=== PATIENT | male | born 1950 | race African-American/Black ===

== ENCOUNTER 2016-08-10 14:01 | Emergency (ER) | payer MEDICARE, OTHER ==
[2016-12-17] MEDS ORDERED: ZOCOR 10 MG TAB10 MG PO (18:26)
[2016-12-17] MEDS ORDERED: ASPIRIN81 MG PO (18:30)
[2016-12-17] MEDS ORDERED: HYDROCHLOROTHIA25 MG PO (18:30)
[2016-12-17] MEDS ORDERED: THERAGRAN TAB1 EA PO (18:31)
[2016-12-17] MEDS ORDERED: POTASSIUM (18:36)
[2016-12-19] MEDS ORDERED: NITROSTAT0.4 MG SL (17:09)
[2016-12-19] MEDS ORDERED: NORVASC 5 MG TAB5 MG PO (17:09)
== END 2016-08-10 17:10 | disposition home or self-care (01) ==
LOC: ER1 14:01
DX: S60.211A Contusion of right wrist, initial encounter (principal); I10 Essential (primary) hypertension; Z88.6 Allergy status to analgesic agent; W22.09XA Striking against other stationary object, initial encounter; Y92.22 Religious institution as the place of occurrence of the external cause; Z79.82 Long term (current) use of aspirin; Z79.899 Other long term (current) drug therapy
CPT/HCPCS: 29125; 73110; 73130; 99283

== ENCOUNTER → 2016-09-30 | Outpatient (CLI) | payer MEDICARE, OTHER ==
[~2016-09-30] MED LIST: ASPIRIN81 MG PO; HYDROCHLOROTHIA25 MG PO; NITROSTAT0.4 MG SL; NORVASC 5 MG TAB5 MG PO; POTASSIUM; THERAGRAN TAB1 EA PO; ZOCOR 10 MG TAB10 MG PO
== END ==
LOC: KOH-I 13:02
DX: M25.511 Pain in right shoulder (principal); M25.531 Pain in right wrist; M25.571 Pain in right ankle and joints of right foot; M25.572 Pain in left ankle and joints of left foot; M19.031 Primary osteoarthritis, right wrist; R79.89 Other specified abnormal findings of blood chemistry
CPT/HCPCS: 73030; 73110; 73630

== ENCOUNTER 2021-09-27 11:47 | Inpatient (IN) | payer MEDICARE, OTHER ==
[~2021-09-27] VITALS: Ht 175.3 cm; Wt 84.8 kg
[~2021-09-27 11:47] MED LIST changes: +AMLODIPINE BESYL5 MG PO; +ATORVASTATIN CA20 MG PO; +HARVONI 90-4001 EACH PO; +HYDRALAZINE HCL25 MG PO; +IMDUR ER TAB 3030 MG PO; +LIPITOR TAB 2020 MG PO; +LISINOPRIL10 MG PO; +LOPRESSOR 25 MG25 MG PO; +MELOXICAM15 MG PO; +PLAVIX 75 MG TA75 MG PO; +PRADAXA 150 MG150 MG PO
[2021-09-27 12:46] LABS: HEMOGLOBIN 13.8 gm/dl (14.0-17.5); RED BLOOD COUNT 4.52 M/UL (4.20-5.50); WHITE BLOOD COUNT 6.4 K/UL (4.5-11.0)
[2021-09-27 12:58] LABS: BUN/CREATININE RATIO 14 (0-10)
[2021-09-27] MEDS ORDERED: ELIQUIS5 MG PO (15:42)
[2021-09-27] MEDS ORDERED: AMLODIPINE BESY10 MG PO (15:43)
[2021-09-27] MEDS ORDERED: PROVENTIL HFA6.7 GM INH (17:30)
[2021-09-27] MEDS ORDERED: IPRAT-ALBUT 0.5-3 ML INH (17:31)
[2021-09-27] MEDS ORDERED: GABAPENTIN600 MG PO (17:32)
[2021-09-28 03:03] LABS: HEMOGLOBIN 11.3 gm/dl (14.0-17.5); RED BLOOD COUNT 3.73 M/UL (4.20-5.50); WHITE BLOOD COUNT 3.6 K/UL (4.5-11.0)
[2021-09-28 03:49] LABS: BUN/CREATININE RATIO 16 (0-10)
[2021-09-29 01:50] LABS: BUN/CREATININE RATIO 15 (0-10)
[2021-09-30 02:09] LABS: BUN/CREATININE RATIO 13 (0-10)
[2021-10-01 02:38] LABS: HEMOGLOBIN 10.9 gm/dl (14.0-17.5); RED BLOOD COUNT 3.57 M/UL (4.20-5.50); WHITE BLOOD COUNT 4.3 K/UL (4.5-11.0)
[2021-10-01 03:06] LABS: BUN/CREATININE RATIO 14 (0-10)
[2021-10-01] MEDS ORDERED: SYMBICORT 160-1 INHA INH (09:04)
[2021-10-01] MEDS ORDERED: FUROSEMIDE40 MG PO (09:04)
[2021-10-01] MEDS ORDERED: COZAAR 50MG TAB50 MG PO (09:04)
[2021-10-01] MEDS ORDERED: WARFARIN SODIUM5 MG PO (09:04)
== END 2021-10-01 10:05 | disposition home or self-care (01) | DRG 175 ==
LOC: ER1 11:47 → PROG CARE 15:30 → CDU 15:30 → PROG CARE 17:13
PROVIDERS: Nurse Practitioner; ADMIT Internal Medicine Infectious Disease
PROC: 5A09357 Assistance with Respiratory Ventilation, Less than 24 Consecutive Hours, Continuous Positive Airway Pressure (ICD-10-PCS; 2021-09-27)
PROC: B24BZZZ Ultrasonography of Heart with Aorta (ICD-10-PCS; principal; 2021-09-28)
PROC: 5A09357 Assistance with Respiratory Ventilation, Less than 24 Consecutive Hours, Continuous Positive Airway Pressure (ICD-10-PCS; 2021-09-28)
PROC: 5A09357 Assistance with Respiratory Ventilation, Less than 24 Consecutive Hours, Continuous Positive Airway Pressure (ICD-10-PCS; 2021-09-30)
PROC: 5A09357 Assistance with Respiratory Ventilation, Less than 24 Consecutive Hours, Continuous Positive Airway Pressure (ICD-10-PCS; 2021-10-01)
DX: I26.93 Single subsegmental thrombotic pulmonary embolism without acute cor pulmonale (principal); I50.33 Acute on chronic diastolic (congestive) heart failure; J96.21 Acute and chronic respiratory failure with hypoxia; Z20.822 Contact with and (suspected) exposure to COVID-19; J44.0 Chronic obstructive pulmonary disease with (acute) lower respiratory infection; I48.20 Chronic atrial fibrillation, unspecified; I49.5 Sick sinus syndrome; I10 Essential (primary) hypertension; E87.6 Hypokalemia; I73.9 Peripheral vascular disease, unspecified; I25.10 Atherosclerotic heart disease of native coronary artery without angina pectoris; I08.3 Combined rheumatic disorders of mitral, aortic and tricuspid valves; M06.9 Rheumatoid arthritis, unspecified; J20.9 Acute bronchitis, unspecified; Z79.01 Long term (current) use of anticoagulants; Z95.5 Presence of coronary angioplasty implant and graft; Z86.73 Personal history of transient ischemic attack (TIA), and cerebral infarction without residual deficits; Z99.81 Dependence on supplemental oxygen; Z79.82 Long term (current) use of aspirin; Z71.6 Tobacco abuse counseling; Z87.891 Personal history of nicotine dependence; Z88.8 Allergy status to other drugs, medicaments and biological substances; Z82.49 Family history of ischemic heart disease and other diseases of the circulatory system; I25.2 Old myocardial infarction
CPT/HCPCS: ECHO; 0240U; 36415; 36600; 71045; 71046; 80048; 80053; 81001; 82550; 82553; 82803; 83605; 83735; 83880; 84100; 84132; 84484; 85025; 85027; 85379; 85610; 85730; 86140; 87040; 93005; 93306; 94640; 94660; 94664; 94760; 96374; 96375; 99285; J0456; J0696; J1100; J1650; J1940; J2060; J7030; Q9967

== ENCOUNTER 2021-10-03 14:51 | Emergency (ER) | payer MEDICARE, OTHER ==
[~2021-10-03 14:51] MED LIST changes: +AMLODIPINE BESY10 MG PO; +COZAAR 50MG TAB50 MG PO; +ELIQUIS5 MG PO; +FUROSEMIDE40 MG PO; +GABAPENTIN600 MG PO; +IPRAT-ALBUT 0.5-3 ML INH; +PROVENTIL HFA6.7 GM INH; +SYMBICORT 160-1 INHA INH; +WARFARIN SODIUM5 MG PO
== END 2021-10-03 15:04 | disposition left against medical advice (07) ==
LOC: ER1 14:51
DX: Z53.21 Procedure and treatment not carried out due to patient leaving prior to being seen by health care provider (principal)

== ENCOUNTER 2021-10-17 18:01 | Inpatient (IN) | payer MEDICARE, OTHER ==
[~2021-10-17] VITALS: Ht 175.3 cm; Wt 84.8 kg
[2021-10-17 18:53] LABS: HEMOGLOBIN 11.3 gm/dl (14.0-17.5); RED BLOOD COUNT 3.9 M/UL (4.20-5.50); WHITE BLOOD COUNT 5.7 K/UL (4.5-11.0)
[2021-10-18 04:22] LABS: HEMOGLOBIN 10.6 gm/dl (14.0-17.5); RED BLOOD COUNT 3.6 M/UL (4.20-5.50)
[2021-10-18 04:44] LABS: WHITE BLOOD COUNT 3.9 K/UL (4.5-11.0)
[2021-10-19 03:15] LABS: HEMOGLOBIN 10.5 gm/dl (14.0-17.5); RED BLOOD COUNT 3.55 M/UL (4.20-5.50); WHITE BLOOD COUNT 3.4 K/UL (4.5-11.0)
--- NOTE | 2021-10-19 13:30 | NUR ---
SECURITY HAD TO BE CALLED TO COME AND SPEAK TO PATIENT. PATIENT WAS YELLING AND SCREAMING FOR FOOD. BEING VERY BELIGERANT TO STAFF AND USING PROFANITY. HE STATED A PROVIDER HAD CAME INTO HIS ROOM AND TOLD HIM HE COULD EAT. SPOKE WITH DR. CASEY WHO ORDERED PATIENT A GI SOFT AHA DIET.
[2021-10-20 02:57] LABS: RED BLOOD COUNT 3.38 M/UL (4.20-5.50); WHITE BLOOD COUNT 3.5 K/UL (4.5-11.0)
[2021-10-21 02:53] LABS: RED BLOOD COUNT 3.36 M/UL (4.20-5.50); WHITE BLOOD COUNT 3.9 K/UL (4.5-11.0)
[2021-10-22 02:57] LABS: HEMOGLOBIN 10.4 gm/dl (14.0-17.5); RED BLOOD COUNT 3.5 M/UL (4.20-5.50)
[2021-10-22 03:28] LABS: BUN/CREATININE RATIO 19 (0-10)
--- NOTE | 2021-10-22 09:17 | NUR ---
PATIENT HAD 10 BEAT RUN OF V-TACH. PROVIDER AWARE. STRIP ON CHART. WILL CONTINUE TO MONITOR.
[2021-10-23 02:59] LABS: HEMOGLOBIN 10.1 gm/dl (14.0-17.5); RED BLOOD COUNT 3.51 M/UL (4.20-5.50); WHITE BLOOD COUNT 3.8 K/UL (4.5-11.0)
[2021-10-23 03:37] LABS: BUN/CREATININE RATIO 18 (0-10)
[2021-10-24 02:48] LABS: HEMOGLOBIN 10.1 gm/dl (14.0-17.5); RED BLOOD COUNT 3.43 M/UL (4.20-5.50)
[2021-10-24 03:03] LABS: BUN/CREATININE RATIO 17 (0-10)
--- NOTE | 2021-10-24 18:42 | NUR ---
PATIENT HAD 18 BEAT RUN OF V-TACH AT 1805. PROVIDER NOTIFIED. PROVIDER INCICATED SHE WOULD RECHECK ELECTROLYTES AND PATIENT TO SEE DR EASLEY IN AM. TELEMETRY SENT UP STRIP. WILL CONTINUE TO MONITOR.
[2021-10-25 04:15] LABS: HEMOGLOBIN 10.9 gm/dl (14.0-17.5); RED BLOOD COUNT 3.72 M/UL (4.20-5.50)
[2021-10-25 04:33] LABS: BUN/CREATININE RATIO 15 (0-10)
[2021-10-25] MEDS ORDERED: ASPIRIN81 MG PO (15:09)
== END 2021-10-26 02:43 | disposition other institution (70) | DRG 286 ==
LOC: ER1 18:01 → M/S 20:41 → CDU 20:41 → M/S 10-18 13:44
PROVIDERS: Emergency Medicine; Internal Medicine; ADMIT Internal Medicine
PROC: 5A09357 Assistance with Respiratory Ventilation, Less than 24 Consecutive Hours, Continuous Positive Airway Pressure (ICD-10-PCS; 2021-10-18)
PROC: 5A09357 Assistance with Respiratory Ventilation, Less than 24 Consecutive Hours, Continuous Positive Airway Pressure (ICD-10-PCS; 2021-10-19)
PROC: 5A09357 Assistance with Respiratory Ventilation, Less than 24 Consecutive Hours, Continuous Positive Airway Pressure (ICD-10-PCS; 2021-10-21)
PROC: B24BZZZ Ultrasonography of Heart with Aorta (ICD-10-PCS; 2021-10-23)
PROC: 5A09357 Assistance with Respiratory Ventilation, Less than 24 Consecutive Hours, Continuous Positive Airway Pressure (ICD-10-PCS; 2021-10-24)
PROC: 4A023N7 Measurement of Cardiac Sampling and Pressure, Left Heart, Percutaneous Approach (ICD-10-PCS; principal; 2021-10-25)
PROC: B2151ZZ Fluoroscopy of Left Heart using Low Osmolar Contrast (ICD-10-PCS; 2021-10-25)
PROC: B2111ZZ Fluoroscopy of Multiple Coronary Arteries using Low Osmolar Contrast (ICD-10-PCS; 2021-10-25)
PROC: 6A750ZZ Ultrasound Therapy, Circulatory, Single (ICD-10-PCS; 2021-10-25)
DX: I25.10 Atherosclerotic heart disease of native coronary artery without angina pectoris (principal); I50.33 Acute on chronic diastolic (congestive) heart failure; I26.99 Other pulmonary embolism without acute cor pulmonale; J96.21 Acute and chronic respiratory failure with hypoxia; I47.2 Ventricular tachycardia; I13.0 Hypertensive heart and chronic kidney disease with heart failure and stage 1 through stage 4 chronic kidney disease, or unspecified chronic kidney disease; I48.19 Other persistent atrial fibrillation; E78.5 Hyperlipidemia, unspecified; D63.1 Anemia in chronic kidney disease; M10.9 Gout, unspecified; E86.0 Dehydration; J44.9 Chronic obstructive pulmonary disease, unspecified; N18.9 Chronic kidney disease, unspecified; R10.9 Unspecified abdominal pain; Z86.73 Personal history of transient ischemic attack (TIA), and cerebral infarction without residual deficits; Z86.718 Personal history of other venous thrombosis and embolism; Z79.01 Long term (current) use of anticoagulants; Z95.5 Presence of coronary angioplasty implant and graft; Z99.81 Dependence on supplemental oxygen; Z87.891 Personal history of nicotine dependence; I49.5 Sick sinus syndrome
CPT/HCPCS: 36415; 36600; 71045; 78452; 80048; 80053; 82550; 82553; 82803; 83735; 83880; 84100; 84132; 84484; 85025; 85027; 85347; 85610; 85730; 92978; 93005; 93017; 93308; 94640; 94660; 94664; 94760; 96361; 96374; 96375; 96376; 99152; 99153; 99285; A9502; C1753; C1769; C1887; C1894; G0378; J1644; J1650; J1940; J2250; J2270; J2405; J2785; J7040; Q9967; U0002